=== PATIENT | female | born 1950 | race Caucasian/White ===

== ENCOUNTER 2020-01-07 08:55 | Outpatient (NON) | payer OTHER, SELFPAY ==
[2020-01-07 22:56] LABS: SARS-CoV-2 RNA PCR Negative
== END 2020-01-07 08:56 ==
PROVIDERS: Visit Provider Family Medicine
DX: Z20.828 Contact with and (suspected) exposure to other viral communicable diseases (principal)
CPT/HCPCS: 87635; C9803; U0003